=== PATIENT | female | born 1985 | race Hispanic/Latino ===

== ENCOUNTER 2017-06-08 18:06 | Inpatient (IN) | payer BC ==
[2017-06-08 18:40] VITALS: BMI 42.5
[2017-06-08] MEDS ORDERED: Ondansetron HCl/PF 4 MG/2 ML Vial IVP PRN (18:41)
[2017-06-08] MEDS ORDERED: Promethazine HCl 25 MG/ML VIAL IM PRN (18:41)
[2017-06-08] MEDS ORDERED: Lidocaine 1% (PF) 30 ML VIAL SC PRN (18:41)
[2017-06-08] MEDS ORDERED: Misoprostol 200 MCG TAB PR PRN (18:47)
[2017-06-08] MEDS ORDERED: Carboprost 250 MCG/ML AMP IM PRN (18:47)
[2017-06-08] MEDS ORDERED: HYDROcodone/Acetaminophen 5/325 mg Tablet PO PRN ×2 (18:47)
[2017-06-08] MEDS ORDERED: Acetaminophen 500 MG TAB PO PRN (18:47)
[2017-06-08] MEDS ORDERED: Diphenoxylate HCl/Atropine Tablet PO PRN ×2 (18:47)
[2017-06-08] MEDS ORDERED: Calcium Gluc 4.6 MEQ/10 ML (100 MG/ML) SLOW IVP PRN (18:53)
--- NOTE | 2017-06-08 19:03 | PDOC.LDHP ---
Labor and Delivery H&P Chief complaint: other (Elevated BP) HPI: 32 y/o at 36w4d, patient of Dr. Vogel, presents to L&D after severe range BPs at home. She had a frontal headache relieved with water but her thought her face looked flushed, so she checked her BP. Denies VB, LOF , ctx, or decreased FM. ROS neg for HEENT, cv, pulm, gi, gu, neuro, psych, skin, musculoskeletal or constitutional symptoms other than mentioned above. OB History Details: 1 prior 37 week delivery complicated by preeclampsia and pulmonary edema. Past Medical History: PCOS Current medications: pre-marii vitamins Previous surgical history: none Allergies/Adverse Reactions: Allergies Allergy/AdvReac Type Severity Reaction Status Date / Time Sulfa (Sulfonamide Allergy Mild Rash Verified 06/08/17 18:39 Antibiotics) Social history: none - Physical Exam Abnormal vital signs: Severe range BPs 180s-200s/100s General: NAD Heart: RRR Lungs: CTAB Abdomen: gravid FHT: category 1 - Assessment L&D Assessment: medically indicated induction - Plan Plan: admit to L&D, cervical ripening, GBS antibiotic prophylaxis (Will look up GBS results and start if indicated.), informed consent obtained, magnesium for seizure prophylaxis, anesthesia consult for pain management -: Discussed with Dr. Vogel. Will attempt balloon placement and start pitocin in the morning. Will give one dose of steroids since prior to 37 weeks.
[2017-06-08] MEDS ORDERED: Magnesium Sulfate 20 GM/WATER 500 ML BAG IVPB SCH (19:15)
[2017-06-08] MEDS ORDERED: Penicillin G Potassium 5 MILL.UNITS in Sodium Chloride 0.9% 100 ML IVPB SCH (19:15)
[2017-06-08] MEDS ORDERED: Labetalol HCl 100 MG/20 ML VIAL ONE (19:38)
[2017-06-08 19:51] LABS: #Basophils 0.1 thou/uL (0.0-0.2); #Eosinphils 0.1 thou/uL (0.0-0.7); #Lymphocytes 2.8 thou/uL (1.20-3.40); #Monocytes 0.9 thou/uL (0.11-0.59); #Neutrophils 6.6 thou/uL (1.40-6.50); %Basophils 0.5 % (0.0-1.0); %Eosinophils 0.9 % (0.0-10.0); %Lymphocytes 26.6 % (21.0-51.0); %Monocytes 8.8 % (0.0-10.0); Hematocrit 38.7 % (36.0-47.0); Mean Platelet Volume 8.7 fL (7.4-10.4); Red Blood Cell (RBC) Count 4.83 mill/uL (4.20-5.40); White Blood Cell (WBC) Count 10.5 thou/uL (4.8-10.8)
[2017-06-08] MEDS: Lactated Ringer's 1,000 ML IV SCH (19:51)
[2017-06-08] MEDS: Labetalol HCl 100 MG/20 ML VIAL SLOW IVP PRN ×2 (19:52→23:18)
[2017-06-08 20:16] LABS: ALT (SGPT) 16 U/L (8-55); AST (SGOT) 25 U/L (5-34); Alkaline Phosphatase 477 U/L (40-150); Anion Gap 16 mmol/L (10-20); BUN (Urea Nitrogen) 11 mg/dL (7.0-18.7); Bilirubin, Total Less than 0.2 mg/dL (0.2-1.2); Calc. Creatinine Clearance 219 mL/min (70-130); Calcium 9.7 mg/dL (7.8-10.44); Carbon Dioxide 23 mmol/L (22-29); Chloride 105 mmol/L (98-107); Estimated GFR-MDRD Greater than 90; Globulin 3.8 g/dL (2.4-3.5); Protein, Total 7.1 g/dL (6.0-8.3)
--- NOTE | 2017-06-08 20:34 | PDOC.LDPN ---
Labor & Delivery Progress Note - Subjective Subjective: comfortable - Objective Abnormal vital signs: mild range BP after labetalol General: NAD, resting Uterine fundus: non tender Dilation: 0.5 Effacement: 25% Station: -3 FHT: category 1 [place] contractions every: occasional Procedures: Cook balloon placed without difficulty. - Assessment (1) Severe hypertension affecting in third trimester Code(s): O16.3 - UNSPECIFIED MATERNAL HYPERTENSION, THIRD TRIMESTER Current Visit: Yes Status: Acute Plan: continue plan of care -: Cook balloon placed. If still in place at 5am, will start pitocin at that time. Cel[place] received. On Magnesium. BP improved with 20mg labetalol IV x 1. Orders for management of severe hypertension with labetalol written.
[2017-06-08] MEDS: Betamet Acet/Betamet Na Ph 30 MG/5 ML VIAL IM SCH (20:38)
[2017-06-09] MEDS: Labetalol HCl 100 MG/20 ML VIAL SLOW IVP PRN ×3 (00:31→22:33)
[2017-06-09] MEDS: Penicillin G 2.5 MILL.units 2.5 MILL.UNITS in Premix Bag 1 BAG IVPB SCH ×3 (00:43→08:02)
[2017-06-09] MEDS ORDERED: Labetalol HCl 100 MG/20 ML VIAL SLOW IVP PRN (00:48)
[2017-06-09] MEDS: Magnesium Sulfate 20 gm/500 ml 20 GM/500 ML BAG IVPB SCH ×2 (03:58→14:55)
[2017-06-09] MEDS: Calcium Carbonate 500 MG ChewTAB PO PRN ×2 (04:18→08:49)
[2017-06-09] MEDS: LR 500 ML/Oxytocin 10 units 500 ML IV SCH (05:12)
[2017-06-09] MEDS ORDERED: Fentanyl 4 mcg/Marc 0.1% Cadd 100 ML ONE (07:39)
[2017-06-09] MEDS: Lactated Ringer's 1,000 ML IV SCH ×2 (08:00→13:29)
[2017-06-09] MEDS ORDERED: Lactated Ringer's 500 ML IV PRN (09:05)
[2017-06-09] MEDS ORDERED: ePHEDrine/0.9% NaCl/PF SYRINGE 50 mg/10 ml SLOW IVP PRN (09:05)
[2017-06-09] MEDS ORDERED: Eucerin (Mineral Oil/Petrolatum,White) 30 gm Jar TOP PRN (09:05)
[2017-06-09] MEDS ORDERED: Promethazine HCl 25 MG/ML VIAL IM PRN (09:05)
[2017-06-09] MEDS ORDERED: Ondansetron HCl/PF 4 MG/2 ML Vial IVP PRN (09:05)
[2017-06-09] MEDS ORDERED: Naloxone HCl 0.4 mg/ml Vial IVP PRN ×2 (09:05)
[2017-06-09] MEDS ORDERED: diphenhydrAMINE HCl 50 MG/ML 1 ML VIAL IVP PRN (09:05)
[2017-06-09] MEDS ORDERED: Acetaminophen 325 MG TAB PO PRN (09:05)
[2017-06-09] MEDS ORDERED: Fentanyl 4mcg/Marcaine 0.1% Cassette 100 ML EPIDURAL SCH (09:15)
[2017-06-09] MEDS ORDERED: Communication Order-Pharmacy FS SCH (09:15)
--- NOTE | 2017-06-09 11:15 | PDOC.LDPN ---
Labor & Delivery Progress Note - Subjective Subjective: painful contractions (waiting on epidural) - Objective General: NAD, breathing through contractions Uterine fundus: non tender Dilation: 4 Effacement: 50% Station: -3 FHT: category 1 [place] contractions every: 3 Plan: labor augmentation (IOL for PIH w severe features (range of BP), labs reviewed and WNL, continue Mag and Pit, Cook balloon out)
--- NOTE | 2017-06-09 12:54 | PDOC.LDPN ---
Labor & Delivery Progress Note - Subjective Subjective: comfortable - Objective Abnormal vital signs: normal to mild range General: resting Dilation: 7 Effacement: 75% Station: -2 FHT: category 1, early decelerations - Assessment (1) Severe hypertension affecting in third trimester Code(s): O16.3 - UNSPECIFIED MATERNAL HYPERTENSION, THIRD TRIMESTER Current Visit: Yes Status: Acute Plan: continue plan of care, labor augmentation
[2017-06-09] MEDS: LR / Pitocin 40 units/1000 ml 1,000 ML IV PRN (13:59)
--- NOTE | 2017-06-09 14:06 | PDOC.OPDEL ---
OB Operative/Delivery Note Delivery Dr/Surgeon: Jaspreet Pre-Delivery Diagnosis: medically indicated induction (PIH severe features) - Findings B Weight: 4 lb 13 oz - 5 min: 8 - 10 min: 9 - Additional Findings/Plan Placenta delivered: spontaneous Repaired Obstetrical Laceration: 1st degree Estimated blood loss: 300ml Compilations/Other Findings: SGA Post delivery plan: recovery in LICU
[2017-06-10] MEDS: Magnesium Sulfate 20 gm/500 ml 20 GM/500 ML BAG IVPB SCH ×2 (01:49→12:36)
[2017-06-10] MEDS: LR / Pitocin 40 units/1000 ml 1,000 ML IV PRN (02:21)
[2017-06-10] MEDS: Labetalol HCl 100 MG/20 ML VIAL SLOW IVP PRN ×2 (04:29→05:02)
[2017-06-10] MEDS: Betamet Acet/Betamet Na Ph 30 MG/5 ML VIAL IM SCH (06:11)
[2017-06-10] MEDS: LR 500 ML/Oxytocin 10 units 500 ML IV SCH (06:11)
[2017-06-10] MEDS: Lactated Ringer's 1,000 ML IV SCH ×2 (06:11→17:50)
--- NOTE | 2017-06-10 08:21 | PDOC.PP ---
Post Progress Note Post Day #: 1 -: doing well, no PIH sx, req IV lab overnight, labs pending PO intake tolerated: yes Flatus: no Ambulation: no Vital Signs (12 hours) Temp Pulse Resp BP 06/10/17 07:05 80 162/86 H 06/10/17 05:02 82 166/79 H 06/10/17 04:29 75 172/77 H 06/10/17 04:00 98.6 F 78 20 06/10/17 00:37 98.6 F 83 16 06/09/17 22:33 85 171/85 H 06/09/17 21:11 96 166/84 H Weight Weight 248 lb - Physical Examination General: NAD Respiratory: clear to ausculation bilateral Abdominal: no distention Fundus firm & at: below umb Extremities: negative homans (B) Skin: no rash Neurological: no gross focal deficits Psychiatric: normal affect Result Diagrams: 06/08/17 19:35 06/08/17 19:35 Additional Labs: Post Labs Hep Bs Antigen Non-Reactive S/CO (NonReactive) 06/08/17 19:35 (1) Severe hypertension affecting in third trimester Code(s): O16.3 - UNSPECIFIED MATERNAL HYPERTENSION, THIRD TRIMESTER Status: Acute - Assessment/Plan PPD#1 doing well on Mag recovery for PIH severe features (BP criteria). AM labs pending. Discussed slow transition to reg diet (pt very hungry and keeps requesting solid food), magnesium until 24hrs PP if labs WNL. Start Procardia 30mg XL today. Plan of care reviewed.
[2017-06-10 08:59] LABS: Hematocrit 38.8 % (36.0-47.0); Mean Platelet Volume 8.2 fL (7.4-10.4); Red Blood Cell (RBC) Count 4.86 mill/uL (4.20-5.40); White Blood Cell (WBC) Count 14.4 thou/uL (4.8-10.8)
[2017-06-10] MEDS ORDERED: NIFEdipine XL 30 MG TAB PO SCH (09:00)
[2017-06-10 09:13] LABS: ALT (SGPT) 14 U/L (8-55); AST (SGOT) 20 U/L (5-34); Alkaline Phosphatase 334 U/L (40-150); Anion Gap 14 mmol/L (10-20); BUN (Urea Nitrogen) 7 mg/dL (7.0-18.7); Bilirubin, Total 0.2 mg/dL (0.2-1.2); Calc. Creatinine Clearance 229 mL/min (70-130); Calcium 7.8 mg/dL (7.8-10.44); Carbon Dioxide 21 mmol/L (22-29); Chloride 103 mmol/L (98-107); Estimated GFR-MDRD Greater than 90; Globulin 3.7 g/dL (2.4-3.5); Protein, Total 6.8 g/dL (6.0-8.3)
[2017-06-10] MEDS ORDERED: Bupivacaine 0.25% HCL 30 ML VIAL ONE (14:58)
[2017-06-10] MEDS ORDERED: Ondansetron HCl/PF 4 MG/2 ML Vial IVP PRN (16:58)
[2017-06-10] MEDS ORDERED: Preparation H Ointment 28 GM TUBE PR PRN (16:58)
[2017-06-10] MEDS ORDERED: Calcium Gluconate 4.6 MEQ in Sodium Chloride 0.9% 100 ML IVPB PRN (16:58)
[2017-06-10] MEDS ORDERED: Acetaminophen/Codeine 30-300mg Tablet PO PRN (16:58)
[2017-06-10] MEDS ORDERED: Lanolin Ointment 7 GM TUBE TOP PRN (16:58)
[2017-06-10] MEDS ORDERED: Milk Of Magnesia 30 ML UDCUP PO PRN ×2 (16:58)
[2017-06-10] MEDS ORDERED: Adacel (T-DAP) 0.5 ML VIAL IM ONE ×2 (16:58)
[2017-06-10] MEDS ORDERED: Benzocaine/Menthol 20-0.5% 60 ML CAN TOP PRN (16:58)
[2017-06-10] MEDS ORDERED: Bisacodyl 10 MG SUPP PR PRN ×2 (16:58)
[2017-06-10] MEDS ORDERED: diphenhydrAMINE HCl 25 MG CAP PO PRN (16:58)
[2017-06-10] MEDS: Ferrous Sulfate 325 MG TAB PO SCH (17:50)
[2017-06-10] MEDS: Docusate (Surfak) 240 MG CAP PO SCH ×2 (21:21→21:22)
[2017-06-10] MEDS: Ibuprofen 800 MG TAB PO SCH (21:22)
[2017-06-11] MEDS: Ibuprofen 800 MG TAB PO SCH ×3 (05:17→21:45)
[2017-06-11] MEDS: NIFEdipine XL 30 MG TAB PO SCH (09:20)
[2017-06-11] MEDS: Prenatal Vitamin 1 TAB PO SCH (09:20)
[2017-06-11] MEDS: Docusate (Surfak) 240 MG CAP PO SCH ×4 (09:21→21:46)
[2017-06-11] MEDS: Ferrous Sulfate 325 MG TAB PO SCH ×2 (09:21→17:45)
--- NOTE | 2017-06-11 10:12 | PDOC.PP ---
Post Progress Note Post Day #: 2 -: no PIH sx, no SOB, seeing and feeding baby in NICU PO intake tolerated: yes Flatus: yes Ambulation: yes Vital Signs (12 hours) Temp Pulse Resp BP BP 06/11/17 09:20 68 126/64 06/11/17 07:55 98.2 F 68 20 126/64 06/11/17 04:30 97.7 F 75 20 128/65 06/11/17 01:08 98.1 F 87 20 147/70 H Weight Weight 248 lb - Physical Examination General: NAD Respiratory: clear to ausculation bilateral Abdominal: no distention Fundus firm & at: below umb Extremities: negative homans (B) Psychiatric: A&Ox3 Result Diagrams: 06/10/17 08:43 06/10/17 08:43 Additional Labs: Post Labs Hep Bs Antigen Non-Reactive S/CO (NonReactive) 06/08/17 19:35 (1) Severe hypertension affecting in third trimester Code(s): O16.3 - UNSPECIFIED MATERNAL HYPERTENSION, THIRD TRIMESTER Status: Acute (2) Vaginal delivery Code(s): O80 - ENCOUNTER FOR FULL-TERM UNCOMPLICATED DELIVERY Status: Acute - Assessment/Plan PPD#2 sp IOL for PIH w severe features. NO sx/si worsening disease, doing well. Procardia XL 30mg controlling BP well at this time. Baby SGA in NICU doing well. Plan to continue PP care w close observation and likely DC tomorrow.
[2017-06-12] MEDS: Ibuprofen 800 MG TAB PO SCH ×2 (06:15→12:42)
[2017-06-12] MEDS: Prenatal Vitamin 1 TAB PO SCH (07:47)
[2017-06-12] MEDS: Docusate (Surfak) 240 MG CAP PO SCH ×2 (07:47→07:48)
[2017-06-12] MEDS: NIFEdipine XL 30 MG TAB PO SCH (07:48)
[2017-06-12 07:58] VITALS: TEMP 98.1
[2017-06-12] MEDS: Ferrous Sulfate 325 MG TAB PO SCH (08:39)
[2017-06-12] MEDS ORDERED: NIFEdipine XL 60 MG TAB PO SCH (09:00)
[2017-06-12] MEDS ORDERED: NIFEdipine XL 30 MG TAB PO SCH (09:00)
--- NOTE | 2017-06-12 10:50 | PDOC.PP ---
Post Progress Note Post Day #: 3 PO intake tolerated: yes Flatus: yes Ambulation: yes Vital Signs (12 hours) Temp Pulse Resp BP 06/12/17 09:07 82 06/12/17 07:58 98.1 F 82 20 154/72 H 06/12/17 07:48 78 06/12/17 07:40 98.1 F 82 20 Weight Weight 248 lb - Physical Examination General: NAD Cardiovascular: RRR Respiratory: clear to ausculation bilateral Abdominal: no distention, appropriately TTP Fundus firm & at: umb-2 Extremities: negative homans (B) Skin: no rash Neurological: no gross focal deficits Psychiatric: normal affect Result Diagrams: 06/10/17 08:43 06/10/17 08:43 Additional Labs: Post Labs Hep Bs Antigen Non-Reactive S/CO (NonReactive) 06/08/17 19:35 (1) Severe hypertension affecting in third trimester Code(s): O16.3 - UNSPECIFIED MATERNAL HYPERTENSION, THIRD TRIMESTER Status: Acute (2) Vaginal delivery Code(s): O80 - ENCOUNTER FOR FULL-TERM UNCOMPLICATED DELIVERY Status: Acute - Assessment/Plan BP mild range, started procardia xl 30 yesterday, will incr to 60mg on DC. Needs to monitor BP daily, FU in clinic in 1 wk for BP check. No sx PIH. Warnings given. DC home.
[2017-06-12 11:44] VITALS: BP 133/67
[2017-06-13] MEDS ORDERED: NIFEdipine XL 60 MG TAB PO SCH (09:00)
== END 2017-06-12 13:00 | disposition home or self-care (01) | DRG 775 ==
LOC: L&D/OP 18:06 → L&D 20:55 → 3SW 06-10 16:08
PROVIDERS: ADMIT Obstetrics & Gynecology; ATTEND Obstetrics & Gynecology
PROC: 0U7C7ZZ Dilation of Cervix, Via Natural or Artificial Opening (ICD-10-PCS; 2017-06-08)
PROC: 10E0XZZ Delivery of Products of Conception, External Approach (ICD-10-PCS; principal; 2017-06-09)
PROC: 0HQ9XZZ Repair Perineum Skin, External Approach (ICD-10-PCS; 2017-06-09)
DX: O13.4 Gestational [pregnancy-induced] hypertension without significant proteinuria, complicating childbirth (principal); O70.0 First degree perineal laceration during delivery; Z37.0 Single live birth; Z3A.36 36 weeks gestation of pregnancy
CPT/HCPCS: 36415; 76815; 80053; 82570; 84156; 85025; 85027; 86780; 87340; 88307; C1726; J0360; J0595; J0702; J2001; J2540; J3475; J7050; J7120; S0020